=== PATIENT | female | born 1940 | race Caucasian/White ===

== ENCOUNTER 2025-04-26 03:12 | Inpatient (IN) | payer MEDICARE, SELFPAY ==
[2025-04-25 20:24] VITALS: BP 126/70
--- NOTE | 2025-04-25 22:46 | ED.GENMED ---
History of Present Illness
General
Chief Complaint: Abdominal Symptoms
Source: patient, spouse and previous radiology exam (Patient brings with her CT abdomen and pelvis on disc performed earlier today)
Exam Limitations: none
Time Seen by Provider: 04/25/25 22:05
Nursing documentation reviewed up to this point in time: agreed with
History of Present Illness
History of Present Illness:
This is an 84-year-old woman who resides at home with her . She has somewhat extensive past medical history including hypertension, hyperlipidemia, rheumatoid arthritis/Sjogren's syndrome, CHF, left breast cancer status postlumpectomy,
pacemaker, history of mitral as well as tricuspid valve replacements and history of TAVR. She also notes history of somewhat chronic, intermittent lower abdominal discomfort and follows with a asphalt screed operator, Dr. Leahy with previous
colonoscopy 2020. Lower abdominal pain has been attributed to constipation. More recently however she has had more persistent, severe lower abdominal pain, primarily right lower quadrant and evaluated by her asphalt screed operator and underwent CT
abdomen and pelvis February 27 which reportedly showed diverticulosis but no evidence of diverticulitis. Since then she has continued with this lower abdominal pain which is primarily right lower quadrant, much worse when passing a bowel movement. And
notices a fullness, bulge in her right lower quadrant when passing a bowel movement. Due to persistent, worsening lower abdominal pain she sought a second opinion early March with colorectal surgeon, Dr. Brian Velarde. Recommended initiation
of fiber supplement and although the fiber supplement has increased number of bowel movements she passes she has continued with significant right lower quadrant abdominal pain without any other associated symptoms. She has not had a fever nor
chills, no nausea or vomiting. She does note some vaginal pressure, discomfort as well as lower abdominal pain with urinating but denies dysuria nor frequency nor hematuria. Denies back or flank pain. At 1 point she was treated for UTI with a
10-day course of antibiotic which finished 1-1/2 weeks ago.
Lower abdominal pain has persisted thus follow-up call with Dr. Velarde she underwent CT abdomen pelvis today at [facility] and received a call that the CAT scan shows diverticulitis with abscess formation. She spoke with
Syd and as he is semiretired, no longer performing surgeries he recommended several colorectal surgeons including Dr. Olivo.
Patient arrives to the ED tonight for further evaluation.
She has history of rheumatoid arthritis, maintained on Plaquenil, prednisone 7 mg daily. Had been maintained on Actemra injections every 2 weeks with temporary hold on Actemra while she underwent pacemaker revision March 21. Resumed Actemra 2 weeks
ago but then due to persistent abdominal pain was recommended by embroidery finisher to continue to hold Actemra.
She takes no anticoagulants save for low-dose aspirin.
Past History
Past History
ED Past Medical History: Cancer (Left breast cancer), CHF, HTN, Hypercholesterolemia, Valvular disease and Other (Rheumatoid arthritis/Sjogren's syndrome)
ED Past Surgical History: Cardiac (Pacemaker, pacemaker revision February 2025; TAVR August 2024, mitral valve replacement August 2019, tricuspid valve May 2021), Gynecological (Left breast lumpectomy March 2006, left breast lumpectomy November
2021) and Orthopedic (Left knee)
Social History
Tobacco: Non-smoker
Alcohol: None
Personal:
Living: with family
Family History
Family History: Other (Noncontributory)
Phy Exam
Physical Exam
Physical Exam:
GENERAL: 84-year-old woman appears somewhat younger than stated age. Bright and alert, easily communicative and in no acute distress. is accompanying.
EYE: anicteric
NECK: Supple, nontender, no meningismus, no significant adenopathy.
ENT: oral mucosa is moist. No rhinorrhea.
CARDIAC: Regular rate and rhythm. no murmur.
LUNGS: Clear breath sounds bilaterally, no acute respiratory distress, no wheezes/rales/rhonchi
ABDOMEN: Soft, nondistended, moderate tenderness right lower quadrant and suprapubic region, mild tenderness left lower quadrant, no palpable masses, no r/g, no cvat. Minimally hyperactive bowel sounds.
NEUROLOGICAL: Alert and oriented x3, no focal neuro deficits. Gait is steady.
SKIN: Warm and dry, normal color, skin intact. No rash.
MUSCULOSKELETAL: No C/C/E. peripheral pulses are full and equal b/l. No palpable tenderness.
PSYCH: Normal and appropriate interaction.
Course
Orders/Labs/Results
Orders:
Orders
04/25/25 22:46
Electrocardiogram (*1) Urgent
Reason for Study: Abdominal Pain
EKG- Treatment ONCE
Urinalysis Reflex To Culture Urgent
04/25/25 23:35
CRP [C-Reactive Protein] Urgent
Complete Blood Count/With Diff Urgent
Comprehensive Metabolic Panel Urgent
Lactic Acid Urgent
Sed Rate [Erythrocyte Sed Rate] Urgent
Blood Culture Q30M
GURINDER Source: Blood/Venous
Specimen Description:
Blood Culture Q30M
GURINDER Source: Blood/Venous
Specimen Description:
04/26/25 00:05
0.9% Sodium Chloride 1000 ml [Nss] 1,000 ml IV 100 mls/hr
Piperacillin/Tazo 3.375 Gram [Zosyn] 3.375 gram in 50 ml IV NOW
Abnormal Lab Results
04/25/25
23:35
WBC 14.1 H 10^3/uL
(4.8-10.8)
RBC 3.94 L 10^6/uL
(4.20-5.40)
MCH 31.7 H pg
(27.0-31.0)
MCHC 32.6 L g/dL
(33.0-37.0)
Abs Immat Gran (auto) 0.1 H 10^3/uL
(0-0.05)
Absolute Neuts (auto) 10.7 H 10^3/uL
(1.4-6.5)
Absolute Monos (auto) 1.5 H 10^3/uL
(0.1-0.6)
Immature Gran % 1.0 H %
(0-0.5)
Neutrophils % 75.7 H %
(42.2-75.2)
Lymphocytes % 11.4 L %
(20.5-51.1)
Monocytes % 10.9 H %
(1.7-9.3)
BUN 25 H mg/dl
(7-17)
Alkaline Phosphatase 134 H U/L
(38-126)
C-Reactive Protein 39.40 H mg/L
(0.0-10.00)
04/25/25 23:35
04/25/25 23:35
Vital Signs
Initial and Last Documented VS:
Initial Vital Signs
Temp Pulse Resp BP Pulse Ox
97.7 F 86 16 126/70 97
04/25/25 20:24 04/25/25 20:24 04/25/25 20:24 04/25/25 20:24 04/25/25 20:24
Last Documented Vital Signs
Temp Pulse Resp BP Pulse Ox
97.7 F 75 18 149/74 95
04/25/25 23:49 04/25/25 23:49 04/26/25 00:04 04/25/25 23:34 04/26/25 00:09
MDM/Problems Addressed
Differential Diagnosis Includes:
Patient presents with ongoing lower abdominal pain for 2 months, progressively worsening at least over the past month.
Reported unremarkable CT abdomen pelvis February [address] abdomen pelvis today showing sigmoid diverticulitis with focal abscess measuring 5.4 x 3 x 3.2 cm. No oral contrast within the abscess cavity and no free air is visualized. Appendix is
not visualized however no inflammatory changes to suggest appendicitis.
She has not had a fever, overall well in appearance.
Reports no prior history of diverticulitis.
Of note, she had been treated for potential UTI beginning April 10 with a 10-day course of antibiotics which I suspect was Bactrim. She may have partially treated diverticulitis with that course of antibiotic.
Will check labs, initiate IV fluids and plan for IV antibiotics.
Will discuss case with colorectal surgery.
Patient has complex past medical history including rheumatoid arthritis/Sjogren's syndrome, chronic immunocompromise, chronically maintained on prednisone, immunologic's. History of hypertensive heart disease/CHF, valvular disease.
Will check EKG. Lungs are clear to auscultation, she has had no shortness of breath nor chest pain. No indication for chest x-ray.
Will plan to admit to hospitalist service.
Chronic conditions affecting care: HTN, Cardiomyopathy, Immunosuppressed and Cancer
*Radiology
Radiology exam reviewed: other (Outpatient CT abdomen pelvis: Wall thickening of the sigmoid colon with mild surrounding inflammation compatible with acute diverticulitis. Just superior to the sigmoid colon there is a 5.4 x 3 x 3.2 cm fluid
collection consistent with an abscess. There is no oral contrast within the abscess cavit)
*Pulse Oximetry
SaO2: 97
Oxygen Mode of Delivery: Room air
Patient hypoxic: no
*Critical Care Note
Total Time (30-74mins, 75-104mins- exclusive of procedures): Not Applicable
ED Attending Note
-
Portions of this chart may have been created with voice recognition software.� Occasional wrong word or��sound alike� substitutions may have occurred due to the inherent limitations of voice recognition software.
Discharge Plan
Departure
Patient Disposition: Admit
Date of Disposition: 04/26/25
Time of Disposition: 00:48
Admit to: Med/Surg
Admit to doctor: Jon
Presentation/result/management discussed w/ accepting MD/DO: Hospitalist
Condition: Fair
Discharge Problem:
Abscess of sigmoid colon due to diverticulitis
Referrals:
UNKNOWN - PT DOES,NOT KNOW [Family Provider]
Interventions
Interventions:
*Risk Screen - Suicide Last Done: 04/25/25 23:23
*General Assessment Last Done: 04/25/25 23:23
*Neglect/Abuse Screening Last Done: 04/25/25 23:23
*ED- Fall Risk Assessment Last Done: 04/25/25 23:23
*ED COVID-19 Vaccine History Last Done: 04/25/25 23:23
OS-Akahsg-Ixnlgruagn Assessment Last Done: 04/25/25 23:49
Discharge Date and Time
Print Language: SWAZI
[2025-04-25 23:23] VITALS: BMI 21.0
[2025-04-25 23:34] VITALS: BP 149/74
[2025-04-25 23:51] LABS: Hematocrit 38.3 % (37.0-47.0); Hemoglobin 12.5 g/dL (12.0-16.0); Mean Corp Hgb Conc. 32.6 g/dL (33.0-37.0); Mean Corpuscular Volume 97.2 fL (81.0-99.0); Nucleated Red Blood Cells % 0 %; Platelet Count 243 10^3/uL (130-400); Red Cell Dist. Width 12.4 % (11.5-14.5)
[2025-04-26 00:03] LABS: ALT (SGPT) 29 U/L (0-35); AST (SGOT) 36 U/L (14-36); Albumin 4.1 g/dl (3.5-5.0); Alkaline Phosphatase 134 U/L (38-126); Blood Urea Nitrogen 25 mg/dl (7-17); Calcium 9.3 mg/dl (8.4-10.2); Carbon Dioxide 30 mmol/L (22-30); Chloride 104 mmol/L (98-107); Estimated Creatinine Clearance 48 ml/min; Glucose 94 mg/dl (70-99); Potassium 4.6 mmol/L (3.5-5.1); Sodium 139 mmol/L (135-145); Total Protein 6.9 g/dl (6.3-8.2); eGFR > 60.00
[2025-04-26 00:12] LABS: C-Reactive Protein 39.40 mg/L (0.0-10.00)
[2025-04-26] MEDS: NSS 1000 IV (00:19)
[2025-04-26] MEDS: ZOSYN 50 IV ×4 (00:20→21:20)
--- NOTE | 2025-04-26 02:47 | HPS.HSE ---
Family Physician
-
Family Physician: NOT KNOW UNKNOWN - PT DOES
Chief Complaint
-
Abd pain
History of Present Illness
Patient is an 84y F with PMH significant for rheumatoid arthritis, hypertension and prior breast cancer who presents to ED complaining of abdominal pain and abnormal CT scan. Patient states that she has had intermittent lower abdominal / pelvic
pain off-and-on for several years. Symptoms were typically brief / self-limited. Since January of this year she has had more frequent and more severe symptoms. She underwent initial CT A/P with her PCP on 02/27 which showed diverticulosis. She was
referred to Dr. Velarde for painful diverticulosis and started on regimen of Konsul with some improvement in her symptoms. Over the past week or two, she has again had an increase in frequency and severity of pain. She reports pain in the LLQ
and radiating into the genital area. She denies any fevers / chills. but complains of general fatigue and malaise.
No constipation or diarrhea. No bloody stools. No N/V.
Patient was sent for a repeat CT today (done at [facility]) and was called this evening with results.
That CT showed acute diverticulitis with abscess. Patient was advised to present to a facility with colorectal surgery providers and presented to the ED here for evaluation.
At the time of my examination she is resting comfortably and has no current pain.
Medical History
Past Medical History
Past Medical History: Reports Other
Additional Past Medical History:
Rheumatoid Arthritis
Valvular Heart Disease
HFpEF
Hypertension
Sick Sinus Syndrome
Breast Cancer
Paget's Disease of Breast
Diverticular disease
Past Surgical History: Reports Other
Additional Past Surgical History:
MV / TV Replacements
TAVR
PPM Placement
PPM Revision (retained leads)
Bilateral Lumpectomies
Hysterectomy
Right TKA
Social History
Tobacco: Former Smoker (Quit smoking at age 29.)
Alcohol: None
Drug: None
Family History
Family History: Not pertinent
Allergies / Home Medications
Allergies reflects when Allergies were last updated in [facility].
Home Medications with original date entered in [facility]
Allergy/Medication List:
Allergies
Allergy/AdvReac Type Severity Reaction Status Date / Time
lactose Allergy Intolerant Verified 04/25/25 20:32
Home Medications
Acromasin Exemestane 25 mg PO DAILY 04/26/25
Actemra Injection 152 mg SC Q2W 04/26/25
Klorcon Potassium 2 tab PO DAILY 04/26/25
Oxymetazoline Cinamide 04/26/25
PreserVision AREDS 3 tab PO DAILY PRN eyes 04/26/25
acetaminophen 325 mg tablet (Tylenol) 650 mg PO Q6H PRN mild pain 04/26/25
aspirin 81 mg tablet 81 mg PO DAILY 04/26/25
biotin 5,000 mg PO DAILY 04/26/25
calcium citrate 600 mg PO DAILY 04/26/25
cholecalciferol (vitamin D3) 25 mcg (1,000 unit) tablet 25 mcg PO DAILY 04/26/25
dapagliflozin propanediol 5 mg tablet (Farxiga) 5 mg PO 04/26/25
diclofenac sodium 1 % topical gel 1 topical PRN pain 04/26/25
famotidine 40 mg tablet (Pepcid) 40 mg PO DAILY 04/26/25
folic acid 1 mg tablet 1 mg PO DAILY 04/26/25
hydroxychloroquine 200 mg tablet (Plaquenil) 200 mg PO MOWEFR 04/26/25
nadolol 20 mg tablet 20 mg PO DAILY 04/26/25
peg 400-propylene glycol (PF) 0.4 %-0.3 % eye drops in a dropperette (Systane (PF)) 1 drp ophthalmic (eye) BID 04/26/25
prednisone 7 mg PO DAILY 04/26/25
rosuvastatin 10 mg tablet 10 mg PO DAILY 04/26/25
sulfasalazine 500 mg tablet 500 mg PO DAILY 04/26/25
tramadol 50 mg tablet 50 mg PO PRN pain 04/26/25
Review of Systems
-
History Source: Patient
A 12 point ROS was completed and negative except as noted: Yes
Constitutional: Reports Fatigue; Denies Fever or Chills
Respiratory: Denies Cough or Trouble Breathing
Cardiac: Denies Chest Pain or Palpitations
Abdomen/GI: Reports Abdominal Pain; Denies Nausea, Vomiting, Diarrhea, Bloody Stools or Black Stools
: Denies Dysuria or Flank Pain
Musculoskeletal: Denies Joint Pain or Edema
Neurological: Denies Dizzy or Headache
Psych: Denies Depression or Anxiety
Physical Exam
Vital Signs
Vital Signs
Temp Pulse Resp BP Pulse Ox
97.7 F 75 17 149/74 95
04/25/25 23:49 04/25/25 23:49 04/26/25 02:00 04/25/25 23:34 04/26/25 00:09
Physical Exam
General: Other (84y F in no acute distress.)
HEENT: Moist mucous membranes and PERRLA
Respiratory: Clear; No Wheezes, Rales or Rhonchi
Cardiac: S1/S2, Regular Rhythm and Murmur (III/ AMAURY. Barber valve sounds.)
GI: Soft, Non Distended, Normal Bowel Sounds and Other (Mild suprapubic tenderness without rebound / guarding.)
Musculoskeletal: No Clubbing, No Cyanosis and No Edema
Neuro: AO x 3
Laboratory Results
-
04/25/25 23:35
04/25/25 23:35
Laboratory Results
Lactic Acid 0.7 mmol/L (0.7-2.0) 04/25/25 23:35
Total Bilirubin 0.7 mg/dl (0.2-1.3) 04/25/25 23:35
AST 36 U/L (14-36) 04/25/25 23:35
ALT 29 U/L (0-35) 04/25/25 23:35
Alkaline Phosphatase 134 U/L (38-126) H 04/25/25 23:35
Impression/Plan
-
A/P: Patient is an 84y F with PMH significant for valvular heart disease, RA and hypertension who presents to ED for evaluation of diverticulitis / abscess diagnosed on outside CT scan.
Acute Sigmoid Diverticulitis with Abscess
Left Hydronephrosis secondary to the above
- Admit for further evaluation and treatment.
- NPO, IV abx, pain control, etc.
- IR consulted for abscess aspiration / drain placement in AM.
- Colorectal Surgery consulted for additional recommendations.
- Follow temperature curve.
- Monitor for any new / worsening symptoms.
Rheumatoid Arthritis
- Patient reports recent increase in joint pain symptoms.
- Has mostly been off of Actemra (held for PPM replacement in February - took one dose since and then stopped again due to diverticular issues).
- Continue to hold this.
- Continue other current meds including prednisone, Plaquenil, etc.
Valvular Heart Disease
SSS
- s/p mitral, tricuspid and aortic valve replacements in the past.
- Not maintained on chronic diuretic therapy, etc.
- Follow I/Os, daily weights, etc.
- s/p PPM placement and revision. Multiple leads in place.
DVT Prophylaxis: SCDs
Code Status: Full
[2025-04-26] MEDS: TYLENOL 650 MG PO ×2 (04:30→21:19)
[2025-04-26 04:45] VITALS: BP 155/72
[2025-04-26 04:46] VITALS: BMI 20.4
[2025-04-26 05:06] VITALS: BMI 20.4
[2025-04-26] MEDS: ZOSYN IV (05:26)
--- NOTE | 2025-04-26 05:58 | TRANSFER ---
Pt arrived from ED @0445 dx diverticulitis with abscess. ABX Zosyn was infusing on arrival. Pt AAOx4 able to make all needs known. Denied pain to RLQ. VS WNL. Plan of care discussed with pt. Call lindquist within reach. Bed in lowest position.
[2025-04-26 06:00] VITALS: BMI 20.2
[2025-04-26 06:42] LABS: Urine Character Clear (Clear)
[2025-04-26 07:00] VITALS: BP 143/63
[2025-04-26 07:04] LABS: Urine Red Blood Cell None Seen /HPF (0-2)
--- NOTE | 2025-04-26 07:31 | W.PN.UPDATE ---
Update Note
Progress Note Update
Diverticular abscess on yesterday's CT. Unfortunately there is not a safe window for percutaneous drainage of the abscess - bones of pelvis block posterior access, and bowel and iliac vessels block anterior and anterolateral access.
[2025-04-26] MEDS: LOW STRENGTH ASPIRIN 81 MG PO (08:37)
[2025-04-26] MEDS: CORGARD 20 MG PO (08:38)
[2025-04-26] MEDS: FOLVITE 1 MG PO (08:38)
[2025-04-26] MEDS: DELTASONE 7 MG PO (08:39)
--- NOTE | 2025-04-26 10:04 | CON.CRS ---
Consultation
-
Date/Time Consultation Requested: 04/26/2025, 4:37 AM
Date/Time Consultation Performed: 04/26/2025, 9 AM
Requesting Provider: Willy Webb DO
Performing Provider: Korey Olivo MD
Reason for Consultation: diverticulitis
Medical History
-
Chief Complaint: Abdominal pain
History of Present Illness:
84-year-old female with a history of rheumatoid arthritis on hydrochloric when and prednisone, hypertension, and history of breast cancer, complaints to [facility] due to an abnormal CT scan. She had abdominal pain since 02 April and saw the
colorectal office at [facility]. She had an outpatient CT scan that showed acute sigmoid diverticulitis with an associated abscess. She then came to [facility]. She states this is her first attack of diverticulitis. The pain
was worse but it is now improving. She states it was hard to urinate due to lower cramping pain when this first started. She denies any air in her urine. Her bowels are typically regular but they are now loose. She has had a prior hysterectomy
and no other abdominal surgeries. She recently had a TAVR in August 2024 followed by a replacement of a permanent pacemaker on March 21, 2025. On admission her WBC was 14.1. Her vitals have remained normal. IR did take a look at the CT from
[facility] and it was determined there was not a safe window for drainage of the abscess. This was due to bones of the pelvis blocking posterior abscess and bowel and iliac vessels blocking anterior and anterior lateral access.
Given these findings, we have been consulted for surgery evaluation.
Past Medical History
Past Medical History: Other (Rheumatoid arthritis, valvular heart disease, hypertension, sick sinus syndrome, history of breast cancer. Paget's disease of breast)
Past Surgical History: Other (MR/TV replacement, permanent pacemaker placement and revision, bilateral lumpectomies, hysterectomy, right TKA)
Social History
Tobacco: Former Smoker (Quit smoking at age 29)
Alcohol: None
Drug: None
Family History
Family History: Reviewed & Not Pertinent
Allergies / Home Medications
Allergy/AdvReac Type Severity Reaction Status Date / Time
lactose Allergy Intolerant Verified 04/25/25 20:32
�Medication �Instructions �Recorded �Confirmed �Type
Acromasin Exemestane 25 mg PO DAILY 04/26/25 History
Actemra Injection 152 mg SC Q2W 04/26/25 04/26/25 History
Klorcon Potassium 2 tab PO DAILY 04/26/25 History
Oxymetazoline Cinamide 04/26/25 History
PreserVision AREDS 3 tab PO DAILY PRN eyes 04/26/25 04/26/25 History
acetaminophen 325 mg tablet 650 mg PO Q6H PRN mild pain 04/26/25 04/26/25 History
(Tylenol)
aspirin 81 mg tablet 81 mg PO DAILY 04/26/25 04/26/25 History
biotin 5,000 mg PO DAILY 04/26/25 04/26/25 History
calcium citrate 600 mg PO DAILY 04/26/25 04/26/25 History
cholecalciferol (vitamin D3) 25 25 mcg PO DAILY 04/26/25 04/26/25 History
mcg (1,000 unit) tablet
dapagliflozin propanediol 5 mg 5 mg PO 04/26/25 History
tablet (Farxiga)
diclofenac sodium 1 % topical gel 1 topical PRN pain 04/26/25 History
famotidine 40 mg tablet (Pepcid) 40 mg PO DAILY 04/26/25 04/26/25 History
folic acid 1 mg tablet 1 mg PO DAILY 04/26/25 04/26/25 History
furosemide 40 mg tablet (Lasix) 60 mg PO DAILY 04/26/25 04/26/25 History
hydroxychloroquine 200 mg tablet 200 mg PO MOWEFR 04/26/25 04/26/25 History
(Plaquenil)
nadolol 20 mg tablet 20 mg PO DAILY 04/26/25 04/26/25 History
peg 400-propylene glycol (PF) 0.4 1 drp ophthalmic (eye) BID 04/26/25 04/26/25 History
%-0.3 % eye drops in a dropperette
(Systane (PF))
prednisone 7 mg PO DAILY 04/26/25 04/26/25 History
rosuvastatin 10 mg tablet 10 mg PO DAILY 04/26/25 04/26/25 History
sulfasalazine 500 mg tablet 500 mg PO DAILY 04/26/25 04/26/25 History
tramadol 50 mg tablet 50 mg PO PRN pain 04/26/25 History
Review of Systems
-
History Source: Patient
Abdomen/GI: Abdominal Pain
A 10 point review of systems was completed, and was negative except as per HPI.
Physical Exam
Vital Signs
Temp 98.4 F 04/26/25 07:00
Pulse 76 04/26/25 07:00
Resp Rate 16 04/26/25 07:00
Blood pressure 143/63 04/26/25 07:00
SaO2 97 04/26/25 07:00
04/25/25 04/26/25 04/27/25
06:59 06:59 06:59
Actual Weight 57.351 kg
Body Mass Index (BMI) 20.4
Lab Results / Allergies
WBC 14.1 10^3/uL (4.8-10.8) H 04/25/25 23:35
Hgb 12.5 g/dL (12.0-16.0) 04/25/25 23:35
Hct 38.3 % (37.0-47.0) 04/25/25 23:35
Plt Count 243 10^3/uL (130-400) 04/25/25 23:35
Abs Immat Gran (auto) 0.1 10^3/uL (0-0.05) H 04/25/25 23:35
Neutrophils % 75.7 % (42.2-75.2) H 04/25/25 23:35
Allergy/AdvReac Type Severity Reaction Status Date / Time
lactose Allergy Intolerant Verified 04/25/25 20:32
Physical Exam
General: Well Developed, Well Nourished and No Apparent Distress
GI: Soft and Tender (Mild left lower quadrant pain)
Data Reviewed
-
CT Scan: Image Personally Visualized and interpreted, Discussed with Physician and Discussed with Patient
Labs: Labs Reviewed by me, Discussed with Physician and Discussed with Patient
Old Records: Reviewed
Assessment / Plan
-
Assessment: 84-year-old female with first attack of sigmoid diverticulitis with associated abscess unable to be drained by interventional radiology
Plan:
- Up-to-date on colonoscopy, last one was [address] Leahy. Will likely need another as an outpatient once this episode resolves.
- Continue IV fluids. Okay for clears.
- Continue IV antibiotics
- Trend labs and exams. If she worsens she will require colectomy with drainage of the abscess.
- Eventual reimaging at some point inpatient versus outpatient
--- NOTE | 2025-04-26 11:12 | CM ---
CM following re: discharge planning.
Reviewed pt's chart, met with pt.
Pt is an 84 year old female, admitted with primary dx of Acute Sigmoid Diverticulitis with Abscess.
Pt reports she lives with 2SH, 3 steps to enter, has 3 supportive children. Pt described herself as independent in all areas [employer], known to Ellyn LEGER. No DME, no SNF history. Pt expressed her desire to return back home with family support.
PCP: Adriana Bernabe
Pharmacy: [facility]
D/C plan: home with anticipated no needs. to transport at discharge.
CM will follow with discharge plan updates as hospitalization progresses
--- NOTE | 2025-04-26 13:19 | W.PN.HOSP.TC ---
Today's Communication/Plan
-
Zosyn
Clear liquid diet
Assessment / Plan
Assessment / Plan
A/P: Patient is an 84y F with PMH significant for valvular heart disease, RA and hypertension who presents to ED for evaluation of diverticulitis / abscess diagnosed on outside CT scan.
Acute Sigmoid Diverticulitis with Abscess
Left Hydronephrosis secondary to the above
- Admit for further evaluation and treatment.
- Given anatomy and abscess location, [facility] was not able to perform percutaneous drain
- Colorectal Surgery consulted for additional recommendations.
- Plan is to attempt conservative management with IV antibiotics and follow-up imaging depending on clinical development
-Advance to clear liquid diet
- Follow temperature curve.
- Monitor for any new / worsening symptoms.
Rheumatoid Arthritis
Immunosuppressed state on Biologics, hydroxychloroquine, and chronic steroids
- Patient reports recent increase in joint pain symptoms.
- Has mostly been off of Actemra (held for PPM replacement in February - took one dose since and then stopped again due to diverticular issues).
- Continue to hold this.
- Continue other current meds including prednisone, Plaquenil, etc.
Valvular Heart Disease
SSS
- s/p mitral, tricuspid and aortic valve replacements in the past.
- Not maintained on chronic diuretic therapy, etc.
- Follow I/Os, daily weights, etc.
- s/p PPM placement and revision. Multiple leads in place.
DVT Prophylaxis: SCDs
Code Status: Full
Anticipated Discharge: > 48 hours
Subjective/Interval History
-
Date of Service: April 26, 2025
Objective Data
-
Labs:
Laboratory Results
04/26/25
06:00
WBC Pending
Hgb Pending
Hct Pending
Plt Count Pending
Sodium Pending
Potassium Pending
Chloride Pending
Carbon Dioxide Pending
BUN Pending
Creatinine Pending
Glucose Pending
Calcium Pending
Vital Signs:
Vital Signs
Temp Pulse Resp BP Pulse Ox
98.4 F 76 16 143/63 96
04/26/25 07:00 04/26/25 07:00 04/26/25 07:00 04/26/25 07:00 04/26/25 11:01
I&O
04/25/25 04/26/25 04/27/25
06:59 06:59 06:59
Intake Total 480 / 480
Balance 480 / 480
Physical Exam
-
General: Well Developed and No Apparent Distress
HEENT: Normocephalic, Atraumatic and Moist Mucous Membranes
Respiratory: Clear to Auscultation
Cardiac: Regular Rhythm and S1/S2; Negative Murmur, Rub or Gallop
GI: Soft, Nondistended, Normal Bowel Sounds and Other (Mild bilateral lower quadrant tenderness without rebound); Negative Organomegaly
Rectal: Deferred by Provider
Musculoskeletal: No Clubbing, No Cyanosis and No Edema
Skin: Negative Rash
Neuro: Nonfocal/Grossly Intact
[2025-04-26 15:00] VITALS: BP 122/66
[2025-04-26 23:00] VITALS: BP 133/76
[2025-04-27] MEDS: ZOSYN 50 IV ×3 (04:08→16:21)
[2025-04-27 06:00] VITALS: BMI 20.2
[2025-04-27 07:05] VITALS: BP 130/59
[2025-04-27 08:22] LABS: Hematocrit 35.9 % (37.0-47.0); Hemoglobin 12.2 g/dL (12.0-16.0); Mean Corp Hgb Conc. 34.0 g/dL (33.0-37.0); Mean Corpuscular Volume 97.3 fL (81.0-99.0); Platelet Count 217 10^3/uL (130-400); Red Cell Dist. Width 12.6 % (11.5-14.5)
[2025-04-27] MEDS: DELTASONE 7 MG PO (08:46)
[2025-04-27] MEDS: CORGARD 20 MG PO (08:46)
[2025-04-27] MEDS: PLAQUENIL 200 MG PO (08:47)
[2025-04-27] MEDS: FOLVITE 1 MG PO (08:47)
[2025-04-27] MEDS: LOW STRENGTH ASPIRIN 81 MG PO (08:47)
[2025-04-27 08:51] LABS: Blood Urea Nitrogen 13 mg/dl (7-17); Calcium 9.1 mg/dl (8.4-10.2); Carbon Dioxide 28 mmol/L (22-30); Chloride 106 mmol/L (98-107); Estimated Creatinine Clearance 53 ml/min; Glucose 82 mg/dl (70-99); Potassium 3.9 mmol/L (3.5-5.1); Sodium 138 mmol/L (135-145); eGFR > 60.00
[2025-04-27] MEDS: VITAMIN D3 (cholecalciferol) 25 MCG PO (09:00)
[2025-04-27] MEDS: LASIX 60 MG PO (09:00)
--- NOTE | 2025-04-27 09:48 | CON.ID ---
Addendum entered and electronically signed by Maida Encinas MD 04/27/25 15:54:
I personally performed a history and physical exam of the patient and discussed management with the resident. I reviewed the resident's note and agree with the documented findings and plan of care HPI/CC.
# Diverticulitis with 4.5cm abscess
# Leukocytosis, on low dose prednisone
# hx PPM, TAVR, MVR, TVR
# RA on chronic prednisone, Actemra currently on hold
- Recent outpt course of Augmentin x 10d without improvement
- Per IR, no safe window for perc drain.
- No surgical intervention per Colorectal.
- Currently improving on Zosyn (d3)
- Avoiding FQ due to QTc 537
- At time of discharge, recommend trial of Bactrim DS 1 tab po bid and Augmentin 875mg po bid x 3 weeks.
Hold K+, avoid potassium-rich food products while on Bactrim.
Needs once or twice a week BMP to monitor renal function and K while on Bactrim.
Original Note:
Consultation
-
Date/Time Consultation Requested: 04/27/2025 09:34
Date/Time Consultation Performed: 04/27/2025 09:45
Requesting Provider: mariana Churchill MD
Performing Provider: Sha Ryder MD ; Maida Encinas MD
Reason for Consultation: Diverticulitis with Abscess
Chief Complaint / Past History
Chief Complaint
Lower abdominal pain
History of Present Illness
This is a 84-year-old woman with extensive past medical history including hypertension, hyperlipidemia, RA/sjorgen's syndrome, CHF, left breast cancer s/p lumpectomy, pacemaker, history of mitral as well as tricuspid valve replacement, history of
TAVR, with history of chronic lower abdominal discomfort presented with lower abdominal pain and per the recommendations from the PCP and GI he has a recent CT showed diverticulitis with abscess formation.
For her chronic lower abdominal pain she follows with the GI, Dr. Leahy and had a last colonoscopy in 2020. She had a CT abdomen and pelvis on 02/27/2025 which showed diverticulosis but there was no evidence of diverticulitis. She noticed that in
addition to her lower abdominal pain she also had some right lower quadrant swelling and he seek another opinion from colorectal surgeon, Dr. Brian Velarde. Who recommended fiber supplementation and she was also on Augmentin from 04/05/2025 for
10-day course. Given that her abdominal pain continued to worsen she underwent another CT on 04/26/2025 at [facility] and received a call that showed diverticulitis with abscess and PCP recommended her to visit the emergency
department.
She does note some vaginal pressure, discomfort as well as lower abdominal pain with urinating but denies dysuria nor frequency nor hematuria.
Past History
Past Medical History: CAD, CHF, HTN, Hypercholesterolemia, Valvular Disease and Other (Rheumatoid arthritis/Sjogren's syndrome)
Past Surgical History: Cardiac (Pacemaker with revision in February 2025; TAVR August 2024: Mitral valve replacement August 2019, tricuspid valve May 2021), Gynecological (Left breast lumpectomy March 31 2006, left breast lumpectomy November 29, 2001
2) and Orthopedic (Left knee)
Allergy History:
lactose Allergy (Verified 04/25/25 20:32)
Intolerant
Medications Reviewed: Yes
Current Antibiotics:
IV Zosyn
Social History
Tobacco: Former Smoker
Alcohol: None
Drug: None
Family History
Family History: Not Pertinent
Review of Systems
Review of Systems
General: Negative Fever or Chills
Cardiovascular: Negative Chest Pain
Respiratory: Negative Dyspnea or Cough
Gasteroenterology: Other (Right lower quadrant abdominal pain); Negative Nausea, Vomiting or Diarrhea
Genital / Urological: Negative Dysuria or Hematuria
Endocrine: Negative Weight Change
Musculoskeletal: Negative Joint Pain
Vital Signs
Temp Pulse Resp BP Pulse Ox
98.7 F 74 16 130/59 97
04/27/25 07:05 04/27/25 09:00 04/27/25 07:05 04/27/25 09:00 04/27/25 07:05
Physical Exam
Physical Exam
Constitutional: No Acute Distress and Comfortable
Cardiovascular: Regular Rate and S1/S2
Pulmonary: Clear and Non Labored
Gastrointestinal: Soft, Tender (Mildly tender in the lower right quadrant and hypogastric area) and Non Distended
Neurological: Awake, Alert and Oriented
Psychological: Calm
Lab / Diagnostic Study Results
04/27/25 08:15
04/27/25 08:15
Abs Immat Gran (auto) 0.1 10^3/uL (0-0.05) H 04/25/25 23:35
Absolute Neuts (auto) 10.7 10^3/uL (1.4-6.5) H 04/25/25 23:35
Absolute Lymphs (auto) 1.6 10^3/uL (1.2-3.4) 04/25/25 23:35
Absolute Monos (auto) 1.5 10^3/uL (0.1-0.6) H 04/25/25 23:35
Absolute Basos (auto) 0.0 10^3/uL (0-0.2) 04/25/25 23:35
Immature Gran % 1.0 % (0-0.5) H 04/25/25 23:35
Neutrophils % 75.7 % (42.2-75.2) H 04/25/25 23:35
Lymphocytes % 11.4 % (20.5-51.1) L 04/25/25 23:35
Monocytes % 10.9 % (1.7-9.3) H 04/25/25 23:35
Eosinophils % 0.7 % (0-6) 04/25/25 23:35
Basophils % 0.3 % (0-2) 04/25/25 23:35
ESR 20 mm/hour (0-20) 04/25/25 23:35
Lactic Acid 0.7 mmol/L (0.7-2.0) 04/25/25 23:35
C-Reactive Protein 39.40 mg/L (0.0-10.00) H 04/25/25 23:35
Ur Squamous Epith Cells 6-10 /LPF (Few) 04/26/25 06:09
Microbiology Results
Micro:
04/25/25 23:35 Blood Culture - Preliminary
Blood/Venous No Growth in 24 hours- Final report to follow
04/25/25 23:35 Blood Culture - Preliminary
Blood/Venous No Growth in 24 hours- Final report to follow
04/26/25 06:09 Urine Culture - Pending
Urine
Assessment / Plan
#Acute Sigmoid Diverticulitis with Abscess
#Rheumatoid Arthritis: Immunosuppressed; on Biologics, hydroxychloroquine, and chronic steroids; Actemra on hold due to diverticular issues
#Valvular Heart Disease
#CHF
#Leukocytosis
-Follow temperature curve; leukocytosis improving
-Follow-up imaging depending on clinical course
-Given anatomy and abscess location, IRad recommended no safe window for draining
-After discussion with the colorectal surgery patient is hopeful to avoid any surgical procedures and would prefer conservative management.
-Currently on IV Zosyn; can switch to bactrim+ augmentin upon dc; if she does not respond to this will need IV abx. Do not recommend fluoroquinolones given her high QTc; will need 3-4 weeks of abx
- will need weekly BMP.
- will hold supplemental k while on bactrim
- Blood culture NGTD and urine culture neg
--- NOTE | 2025-04-27 10:04 | W.PN.CRS1 ---
Today's Communication / Plan
-
Full liquids
ID consult
Assessment/Plan
-
84-year-old female on chronic steroids for RA admitted. Sigmoid diverticulitis and associated abscess not amenable to percutaneous drainage. There appears to be associated left hydronephrosis.
She remains afebrile with normal vital signs.
- Advance to full liquids.
- ID consult (might need IV abx at home as she failed oral therapy)
- No plans for surgery at this time. Will re-CT (inpatient vs outpatient based on her clinical course)-
Subjective Data
Subjective Data
Date of Service: April 27, 2025
She feels better but still has some lower abdominal/pelvic discomfort. She hasn't moved her bowels in a few days and she has not taken any narcotics. She is hungry and tolerating clear liquids.
Objective Data
-
Vital Signs
Temp Pulse Resp BP Pulse Ox
98.7 F 74 16 130/59 97
04/27/25 07:05 04/27/25 09:00 04/27/25 07:05 04/27/25 09:00 04/27/25 07:05
Intake & Output
04/26/25 04/27/25 04/28/25
06:59 06:59 06:59
Intake Total 480 / 480 1760 / 1760
Balance 480 / 480 1760 / 1760
Intake:
Oral fluids 480 / 480 1320 / 1320
IV fluids (Total) 50 / 50
IV piggybacks 390 / 390
Other:
Number of approximated SMALL 2
amounts of urine
Number of approximated MODERATE 2
amounts of urine
Lab Results
04/27/25 08:15
04/27/25 08:15
Physical Exam
-
General: No Acute Distress
Abdomen: Soft and Tender (minimal, LLQ)
Extremities: No Calf Tenderness
[2025-04-27] MEDS: MIRALAX 17 GRAMS PO (10:21)
--- NOTE | 2025-04-27 11:43 | CM ---
CM following re: discharge planning.
Reviewed pt's chart, met with pt.
Per Colorectal surgery, No plans for surgery at this time, continue supportive care.
Pt lives with 2SH, 3 steps to enter, has 3 supportive children. Pt described herself as independent in all areas [employer], known to [facility]. No DME, no SNF history. Pt expressed her desire to return back home with family support. Pt stated she
does not anticipate needs for VN services at discharge.
D/C plan: home with anticipated no needs. to transport at discharge.
CM will follow with discharge plan updates as hospitalization progresses
[2025-04-27 14:55] VITALS: BP 118/53
--- NOTE | 2025-04-27 15:32 | W.PN.HOSP.TC ---
Today's Communication/Plan
-
see bold
Assessment / Plan
Assessment / Plan
A/P: Patient is an 84y F with PMH significant for valvular heart disease, RA and hypertension who presents to ED for evaluation of diverticulitis / abscess diagnosed on outside CT scan.
Acute Sigmoid Diverticulitis with Abscess
Left Hydronephrosis secondary to the above
- Given anatomy and abscess location, [facility] was not able to perform percutaneous drain
- Appreciate colorectal surgery input, continue IV Zosyn, advance to full liquids
- Appreciate ID input, recommend discharging patient on Bactrim and Augmentin
- Trend fever and white count, continue pain meds
Constipation
- MiraLAX as per colorectal surgery
Rheumatoid Arthritis
Immunosuppressed state on Biologics, hydroxychloroquine, and chronic steroids
- Patient reports recent increase in joint pain symptoms.
- Has mostly been off of Actemra (held for PPM replacement in February - took one dose since and then stopped again due to diverticular issues).
- Continue to hold this.
- Continue other current meds including prednisone, Plaquenil, etc.
Valvular Heart Disease
SSS
- S/p mitral, tricuspid and aortic valve replacements in the past.
- S/p PPM placement and revision. Multiple leads in place.
- Resume Lasix 60 mg daily
DVT Prophylaxis: Start Subcu Lovenox
Code Status: Full
Total time spent to see the patient on the floor, examine the patient, review data and lab results, discuss treatment plan with patient, nursing staff around 45 minutes.
Physical Exam
General: No acute distress
HEENT: Normocephalic, Atraumatic, EOMI, MMM
Respiratory: Left basilar crackles
Cardiac: Normal S1/S2, Regular Rate and Rhythm
GI: Soft, nondistended, tender in the lower quadrants, no masses guarding or rebound
Extremities: No Clubbing, Cyanosis, or Edema
Neuro: Nonfocal/Grossly Intact
Anticipated Discharge: 24 - 48 hours
Subjective/Interval History
-
Date of Service: April 27, 2025
Patient reports improvement in her abdominal pain. It is currently 5 out of 10 in intensity, was 7. She reports constipation. No chest pain, no shortness of breath. No fever, no vomiting.
Objective Data
-
Labs:
Laboratory Results
04/26/25
06:00
WBC Cancelled
Hgb Cancelled
Hct Cancelled
Plt Count Cancelled
Sodium Cancelled
Potassium Cancelled
Chloride Cancelled
Carbon Dioxide Cancelled
BUN Cancelled
Creatinine Cancelled
Glucose Cancelled
Calcium Cancelled
Vital Signs:
Vital Signs
Temp Pulse Resp BP Pulse Ox
98.1 F 78 17 133/76 96
04/26/25 23:00 04/26/25 23:00 04/26/25 23:00 04/26/25 23:00 04/26/25 23:00
I&O
04/26/25 04/27/25 04/28/25
06:59 06:59 06:59
Intake Total 480 / 480 1760 / 1760
Balance 480 / 480 1760 / 1760
[2025-04-27] MEDS: LOVENOX 40 MG SC (17:29)
[2025-04-27 22:50] VITALS: BP 144/61
[2025-04-28] MEDS: ZOSYN 50 IV ×5 (00:12→22:34)
[2025-04-28 05:45] LABS: Hematocrit 38.3 % (37.0-47.0); Hemoglobin 12.8 g/dL (12.0-16.0); Mean Corp Hgb Conc. 33.4 g/dL (33.0-37.0); Mean Corpuscular Volume 96.7 fL (81.0-99.0); Platelet Count 245 10^3/uL (130-400); Red Cell Dist. Width 12.4 % (11.5-14.5)
[2025-04-28 05:51] VITALS: BMI 20.5
[2025-04-28 06:04] LABS: Blood Urea Nitrogen 10 mg/dl (7-17); Calcium 9.6 mg/dl (8.4-10.2); Carbon Dioxide 28 mmol/L (22-30); Chloride 106 mmol/L (98-107); Estimated Creatinine Clearance 53 ml/min; Glucose 83 mg/dl (70-99); Potassium 4.2 mmol/L (3.5-5.1); Sodium 139 mmol/L (135-145); eGFR > 60.00
[2025-04-28 07:10] VITALS: BP 141/64
[2025-04-28] MEDS: FOLVITE 1 MG PO (08:55)
[2025-04-28] MEDS: VITAMIN D3 (cholecalciferol) 25 MCG PO (08:55)
[2025-04-28] MEDS: DELTASONE 7 MG PO (08:55)
[2025-04-28] MEDS: LASIX 60 MG PO (08:55)
[2025-04-28] MEDS: LOW STRENGTH ASPIRIN 81 MG PO (08:55)
[2025-04-28] MEDS: MIRALAX 17 GRAMS PO (08:55)
[2025-04-28] MEDS: CORGARD 20 MG PO (08:55)
--- NOTE | 2025-04-28 09:21 | W.PN.HOSP.TC ---
Today's Communication/Plan
-
see bold
Assessment / Plan
Assessment / Plan
A/P: Patient is an 84y F with PMH significant for valvular heart disease, RA and hypertension who presents to ED for evaluation of diverticulitis / abscess diagnosed on outside CT scan.
Acute Sigmoid Diverticulitis with Abscess
Left Hydronephrosis secondary to the above
- Given anatomy and abscess location, [facility] was not able to perform percutaneous drain
- Appreciate colorectal surgery input, continue IV Zosyn, advanced to LRD
- Appreciate ID input, recommend discharging patient on Bactrim and Augmentin
- Trend fever and white count, continue pain meds
Constipation
- MiraLAX as per colorectal surgery, add senna�S as well
Rheumatoid Arthritis
Immunosuppressed state on Biologics, hydroxychloroquine, and chronic steroids
- Patient reports recent increase in joint pain symptoms.
- Has mostly been off of Actemra (held for PPM replacement in February - took one dose since and then stopped again due to diverticular issues).
- Continue to hold this.
- Continue other current meds including prednisone, Plaquenil, etc.
Valvular Heart Disease
SSS
- S/p mitral, tricuspid and aortic valve replacements in the past.
- S/p PPM placement and revision. Multiple leads in place.
- Resumed Lasix 60 mg daily
DVT Prophylaxis: Start Subcu Lovenox
Code Status: Full
Total time spent to see the patient on the floor, examine the patient, review data and lab results, discuss treatment plan with patient, nursing staff around 40 minutes.
Physical Exam
General: No acute distress
HEENT: Normocephalic, Atraumatic, EOMI, MMM
Respiratory: Left basilar crackles
Cardiac: Normal S1/S2, Regular Rate and Rhythm
GI: Soft, nondistended, tender in the lower quadrants, no masses guarding or rebound
Extremities: No Clubbing, Cyanosis, or Edema
Neuro: Nonfocal/Grossly Intact
Anticipated Discharge: 24 - 48 hours
Subjective/Interval History
-
Date of Service: April 28, 2025
Patient is still constipated. Her abdominal pain continues to improve, is currently 3 out of 10 in intensity. No chest pain, no shortness of breath. No fever, no vomiting.
Objective Data
-
Labs:
Laboratory Results
04/28/25
05:18
WBC 13.7 H
Hgb 12.8
Hct 38.3
Plt Count 245
Sodium 139
Potassium 4.2
Chloride 106
Carbon Dioxide 28
BUN 10
Creatinine 0.7
Glucose 83
Calcium 9.6
Vital Signs:
Vital Signs
Temp Pulse Resp BP Pulse Ox
98.4 F 68 16 141/64 96
04/28/25 07:10 04/28/25 08:55 04/28/25 07:10 04/28/25 08:55 04/28/25 07:10
I&O
04/27/25 04/28/25 04/29/25
06:59 06:59 06:59
Intake Total 1760 / 1760 1420 / 1420
Balance 1760 / 1760 1420 / 1420
[2025-04-28] MEDS: SENOKOT-S 2 TABLET PO ×2 (11:12→20:01)
--- NOTE | 2025-04-28 12:10 | W.PN.GS2 ---
Today's Communication / Plan
-
- LRD
- Abx: per ID, continue Zosyn, no plans for IV on DC
- No plans for surgery at this time. Will re-CT (inpatient vs outpatient based on her clinical course)
Assessment / Plan
-
Patient is a 84 yo F p/w complicated diverticulitis in the setting of on chronic steroids for RA admitted.
CT A/P: Sigmoid diverticulitis and associated abscess not amenable to percutaneous drainage. There appears to be associated left hydronephrosis.
AVSS
Labs notable for persistent leukocytosis, stable Hb, normal electrolytes and renal function
Showing signs of clinical improvement. Continues to have a leukocytosis. Plan for dietary advancement to low residue diet. Continue to trend WBC and fever curve. If persistent leukocytosis would consider CT scan prior to discharge tomorrow to
confirm no abscess formation.
- LRD
- Abx: per ID, continue Zosyn, no plans for IV on DC
- No plans for surgery at this time. Will re-CT (inpatient vs outpatient based on her clinical course)
Subjective Data
-
Date of Service: April 28, 2025
Feels improved. Less pain. No nausea or vomiting. Passing flatus, no BM. Afebrile.
Objective Data
-
Intake and Output
04/27/25 04/28/25 04/29/25
06:59 06:59 06:59
Intake Total 1760 / 1760 1420 / 1420 50 / 50
Balance 1760 / 1760 1420 / 1420 50 / 50
Intake:
Oral fluids 1320 / 1320 1320 / 1320
IV fluids (Total) 50 / 50
IV piggybacks 390 / 390 100 / 100 50 / 50
Other:
Number of approximated SMALL 2
amounts of urine
Number of approximated MODERATE 2 3
amounts of urine
Vital Signs
Temp Pulse Resp BP Pulse Ox
98.4 F 68 16 141/64 98
04/28/25 07:10 04/28/25 08:55 04/28/25 07:10 04/28/25 08:55 04/28/25 12:07
Lab Results
04/28/25 05:18
04/28/25 05:18
Calcium 9.6 mg/dl (8.4-10.2) 04/28/25 05:18
Total Bilirubin 0.7 mg/dl (0.2-1.3) 04/25/25 23:35
AST 36 U/L (14-36) 04/25/25 23:35
ALT 29 U/L (0-35) 04/25/25 23:35
Alkaline Phosphatase 134 U/L (38-126) H 04/25/25 23:35
Total Protein 6.9 g/dl (6.3-8.2) 04/25/25 23:35
Albumin 4.1 g/dl (3.5-5.0) 04/25/25 23:35
Physical Exam
-
Gen: NAD
Abd: soft, NT, ND, non-peritoneal
Patient has a cordova catheter: No
Patient has a central line: No
[2025-04-28 15:50] VITALS: BP 124/72
[2025-04-28] MEDS: LOVENOX 40 MG SC (17:25)
[2025-04-28 22:32] VITALS: BP 148/70
[2025-04-29] MEDS: ZOSYN 50 IV ×2 (04:36→10:22)
[2025-04-29 06:00] VITALS: BMI 20.4
[2025-04-29 06:03] LABS: Hematocrit 33.3 % (37.0-47.0); Hemoglobin 11.1 g/dL (12.0-16.0); Mean Corp Hgb Conc. 33.3 g/dL (33.0-37.0); Mean Corpuscular Volume 97.4 fL (81.0-99.0); Platelet Count 239 10^3/uL (130-400); Red Cell Dist. Width 12.2 % (11.5-14.5)
[2025-04-29 06:16] LABS: Blood Urea Nitrogen 15 mg/dl (7-17); Calcium 8.8 mg/dl (8.4-10.2); Carbon Dioxide 29 mmol/L (22-30); Chloride 105 mmol/L (98-107); Estimated Creatinine Clearance 53 ml/min; Glucose 81 mg/dl (70-99); Magnesium 2.4 mg/dl (1.6-2.3); Potassium 3.8 mmol/L (3.5-5.1); Sodium 139 mmol/L (135-145); eGFR > 60.00
[2025-04-29 07:00] VITALS: BP 147/66
[2025-04-29] MEDS: CORGARD 20 MG PO (09:07)
[2025-04-29] MEDS: MIRALAX 17 GRAMS PO (09:07)
[2025-04-29] MEDS: VITAMIN D3 (cholecalciferol) 25 MCG PO (09:07)
[2025-04-29] MEDS: DELTASONE 7 MG PO (09:08)
[2025-04-29] MEDS: FOLVITE 1 MG PO (09:09)
[2025-04-29] MEDS: LOW STRENGTH ASPIRIN 81 MG PO (09:09)
[2025-04-29] MEDS: SENOKOT-S PO ×2 (09:11→09:55)
--- NOTE | 2025-04-29 10:22 | W.PN.ID1 ---
Date of Service
Date of Service: April 29, 2025
Today's Communication
Continue antibiotics.
Assessment / Plan
#Acute Sigmoid Diverticulitis with Abscess
#Rheumatoid Arthritis: Immunosuppressed; on Biologics, hydroxychloroquine, and chronic steroids; Actemra on hold due to diverticular issues
#Valvular Heart Disease
#CHF
#Leukocytosis
-Follow temperature curve; leukocytosis improving
-Follow-up imaging depending on clinical course
-Given anatomy and abscess location, IRad recommended no safe window for draining
-After discussion with the colorectal surgery patient is hopeful to avoid any surgical procedures and would prefer conservative management.
-Currently on IV Zosyn.
At D/C, switch to bactrim DS 1 PO BID + Augmentin 875 mg PO BID x 3 weeks
if she does not respond to this will need IV abx. Do not recommend fluoroquinolones given her high QTc; will need 3-4 weeks of abx
- will need weekly BMP / CBC
- will hold supplemental k while on bactrim
- Blood culture NGTD and urine culture neg
Chief Complaint
-: Other (Diverticulitis)
Subjective / Review of Systems
Review of Systems: No Fever, No Chills and No Abdominal Pain
Vital Signs / Physical Exam
Vital Signs
Vital Signs
Temp Pulse Resp BP Pulse Ox
98 F 68 16 147/66 97
04/29/25 07:00 04/29/25 07:00 04/29/25 07:00 04/29/25 07:00 04/29/25 07:00
Physical Exam
Constitutional: No Acute Distress, Comfortable and Non-toxic
Eyes: Sclera Anicteric
Pulmonary: Non Labored
Gastrointestinal: Non Distended
Extremities: Negative Edema, Cyanosis or Erythema
Neurological: Awake, Alert and Other
Objective Data
Lab Data
Lab Results
04/29/25 04:24
04/29/25 04:25
ESR 20 mm/hour (0-20) 04/25/25 23:35
Estimated Creat Clear 53 ml/min 04/29/25 04:25
Lactic Acid 0.7 mmol/L (0.7-2.0) 04/25/25 23:35
Total Bilirubin 0.7 mg/dl (0.2-1.3) 04/25/25 23:35
AST 36 U/L (14-36) 04/25/25 23:35
ALT 29 U/L (0-35) 04/25/25 23:35
Alkaline Phosphatase 134 U/L (38-126) H 04/25/25 23:35
C-Reactive Protein 39.40 mg/L (0.0-10.00) H 04/25/25 23:35
Most recent labs reviewed.
Micro Results:
04/25/25 23:35 Blood Culture - Preliminary
Blood/Venous No Growth in 72 hours- Final report to follow
04/25/25 23:35 Blood Culture - Preliminary
Blood/Venous No Growth in 72 hours- Final report to follow
04/26/25 06:09 Urine Culture - Final
Urine NO GROWTH
--- NOTE | 2025-04-29 10:54 | W.PN.GS2 ---
Today's Communication / Plan
-
- LRD
- Abx: per ID, continue Zosyn, no plans for IV on DC
- DC today with outpatient follow-up with CRS
Assessment / Plan
-
Patient is a 84 yo F p/w complicated diverticulitis in the setting of on chronic steroids for RA admitted.
CT A/P: Sigmoid diverticulitis and associated abscess not amenable to percutaneous drainage. There appears to be associated left hydronephrosis.
AVSS
Labs notable for persistent leukocytosis trending down, stable Hb, normal electrolytes and renal function
Showing signs of clinical improvement with less abdominal pain. Leukocytosis trending down. John discussion that she is at high risk given her previous failure of outpatient oral antibiotics and immunosuppression. Discussed and offered a repeat
CT scan today to more definitively determine and document that she is improving and has not developed a abscess. Ms. Romano declines at this time. Discussed that she will likely need repeat outpatient imaging. All questions answered.
- LRD
- Abx: per ID, continue Zosyn, no plans for IV on DC
- DC today with outpatient follow-up with CRS
Subjective Data
-
Date of Service: April 29, 2025
No complaints. Overall feels improved. Denies any abdominal or pelvic pain or discomfort. Tolerating a diet. Reports passing flatus and stools. No fevers.
Objective Data
-
Intake and Output
04/28/25 04/29/25 04/30/25
06:59 06:59 06:59
Intake Total 1420 / 1420 500 / 500
Balance 1420 / 1420 500 / 500
Intake:
Oral fluids 1320 / 1320 240 / 240
IV fluids (Total) 60 / 60
IV piggybacks 100 / 100 200 / 200
Other:
Number of approximated MODERATE 3 1
amounts of urine
Vital Signs
Temp Pulse Resp BP Pulse Ox
98 F 68 16 147/66 96
04/29/25 07:00 04/29/25 07:00 04/29/25 07:00 04/29/25 07:00 04/29/25 10:45
Lab Results
04/29/25 04:24
04/29/25 04:25
Calcium 8.8 mg/dl (8.4-10.2) 04/29/25 04:25
Phosphorus 2.9 mg/dl (2.5-4.5) 04/29/25 04:25
Magnesium 2.4 mg/dl (1.6-2.3) H 04/29/25 04:25
Total Bilirubin 0.7 mg/dl (0.2-1.3) 04/25/25 23:35
AST 36 U/L (14-36) 04/25/25 23:35
ALT 29 U/L (0-35) 04/25/25 23:35
Alkaline Phosphatase 134 U/L (38-126) H 04/25/25 23:35
Total Protein 6.9 g/dl (6.3-8.2) 04/25/25 23:35
Albumin 4.1 g/dl (3.5-5.0) 04/25/25 23:35
Physical Exam
-
Gen: NAD
Abd: soft, NT/ND, non-peritoneal
Patient has a cordova catheter: No
Patient has a central line: No
[2025-04-29] MEDS: LASIX PO (11:49)
--- NOTE | 2025-04-29 12:39 | W.PN.HOSP.TC ---
Today's Communication/Plan
-
Cleared by surgery for discharge today
Assessment / Plan
Assessment / Plan
A/P: Patient is an 84y F with PMH significant for valvular heart disease, RA and hypertension who presents to ED for evaluation of diverticulitis / abscess diagnosed on outside CT scan.
Acute Sigmoid Diverticulitis with Abscess
Left Hydronephrosis secondary to the above
- Failed outpatient Augmentin
- Given anatomy and abscess location, [facility] was not able to perform percutaneous drain
- Appreciate colorectal surgery input, improving on IV Zosyn, tolerating low residue diet
- Appreciate ID input, recommend discharging patient on Bactrim and Augmentin x 3 weeks
- Patient was offered and declined repeat abdominal CT on the day of discharge
- Will discharge on Bactrim and Augmentin for 3 weeks as per ID
- Patient has been instructed to stop her potassium supplements, prescription has been provided for weekly BMP and CBC
- If she fails this course of antibiotics, she will need IV antibiotics
- Follow-up with colorectal surgery and ID in the office, and her PCP as well
Constipation
- Resolved, continue laxatives upon discharge
Rheumatoid Arthritis
Immunosuppressed state on Biologics, hydroxychloroquine, and chronic steroids
- Patient reports recent increase in joint pain symptoms.
- Has mostly been off of Actemra (held for PPM replacement in February - took one dose since and then stopped again due to diverticular issues).
- Continue to hold this upon dc until infection completely resolves
- Continue other current meds including prednisone, Plaquenil, etc.
Valvular Heart Disease
SSS
- S/p mitral, tricuspid and aortic valve replacements in the past.
- S/p PPM placement and revision. Multiple leads in place.
- Resumed Lasix 60 mg daily
DVT Prophylaxis: Start Subcu Lovenox
Code Status: Full
Physical Exam
General: No acute distress
HEENT: Normocephalic, Atraumatic, EOMI, MMM
Respiratory: Left basilar crackles
Cardiac: Normal S1/S2, Regular Rate and Rhythm
GI: Soft, nondistended, nontender, no masses guarding or rebound
Extremities: No Clubbing, Cyanosis
Mild lower extremity edema noted
Neuro: Nonfocal/Grossly Intact
Anticipated Discharge: Today
Subjective/Interval History
-
Date of Service: April 29, 2025
Patient reports her abdominal pain has resolved. No nausea, no vomiting. She had a bowel movement. No fever.
Objective Data
-
Labs:
Laboratory Results
04/29/25 04/29/25
04:24 04:25
WBC 11.2 H
Hgb 11.1 L
Hct 33.3 L
Plt Count 239
Sodium 139
Potassium 3.8
Chloride 105
Carbon Dioxide 29
BUN 15
Creatinine 0.7
Glucose 81
Calcium 8.8
Vital Signs:
Vital Signs
Temp Pulse Resp BP Pulse Ox
98 F 68 16 147/66 96
04/29/25 07:00 04/29/25 07:00 04/29/25 07:00 04/29/25 07:00 04/29/25 10:45
I&O
04/28/25 04/29/25 04/30/25
06:59 06:59 06:59
Intake Total 1420 / 1420 500 / 500
Balance 1420 / 1420 500 / 500
--- NOTE | 2025-04-29 12:39 | W.DCSUMMARY ---
Discharge Summary
Discharge Data
Date of Admission: 04/26/25
Date of Discharge: 04/29/25
-
Pending Results: No
Hospital Course
Discharge diagnosis:
Acute Sigmoid Diverticulitis with Abscess
Left Hydronephrosis
Constipation
Rheumatoid arthritis
Immunosuppressed state on Biologics
Valvular heart disease
Sick sinus syndrome status post permanent pacemaker placement
Consults: Colorectal surgery, ID
Hospital course:
84-year-old female with a past medical history of RA on Biologics, immunosuppression, valvular heart disease, and sick sinus syndrome status post permanent pacemaker who was admitted for acute sigmoid diverticulitis with abscess that failed
outpatient Augmentin. She had an outpatient CT at [facility], which showed persistent acute diverticulitis with abscess. Patient was seen in conjunction with colorectal surgery. Attempts were made by IR to drain the abscess, but
was unsuccessful. She was treated conservatively with IV Zosyn, bowel rest.
After several days, her pain resolved. Patient was started on a diet, and tolerated a low residue diet. Her abdominal pain resolved on the day of discharge. She was offered a repeat CT of the abdomen and pelvis on the day of discharge, but
declined. Patient was seen in conjunction with ID for antibiotic recommendations. She will be discharged on Bactrim and Augmentin for 21 days as per ID. She has been instructed to discontinue her potassium supplements. Prescription was provided
for her to have weekly BMP, and CBC. She needs to follow-up with colorectal surgery in the office, ID, and her PCP.
Disposition: Home self-care
Discharge planning: Required 35 minutes
Discharge Plan
-
Patient Disposition: Home with Home Care
Discharge Diagnosis/Procedures: Acute sigmoid diverticulitis with abscess
Condition: Good
Diet: Low Fiber
Activity: As tolerated
Driving Restrictions: As prior to admission
Blood Work: Weekly CBC, BMP
Activity Restrictions/Additional Instructions:
The infection doctor recommends 3 weeks of antibiotics.
Hold your potassium supplement while taking Bactrim, as this can cause high potassium.
You will need weekly blood work, please follow-up with your PCP in 1 week, ID, and colorectal surgery as directed.
Referrals:
Jr Olivo MD [Active, ColoRectal] - in two to four weeks
Dimitris Betancourt, [Active, Infectious Diseases] - in two to three weeks
UNKNOWN - PT DOES,NOT KNOW [Family Provider]
Prescriptions:
New
sennosides-docusate sodium 8.6-50 mg Tablet
2 tab PO BID Qty: 60 0RF
amoxicillin-pot clavulanate 875-125 mg tablet
1 tab PO BID 21 Days Qty: 42 0RF
sulfamethoxazole-trimethoprim [Bactrim DS] 800-160 mg tablet
1 tab PO BID 21 Days Qty: 42 0RF
Continued
acetaminophen [Tylenol] 325 mg Tablet
650 mg PO Q6H PRN (Reason: mild pain )
sulfasalazine 500 mg Tablet
500 mg PO DAILY
famotidine [Pepcid] 40 mg Tablet
40 mg PO DAILY
tramadol 50 mg Tablet
50 mg PO PRN (Reason: pain )
nadolol 20 mg Tablet
20 mg PO DAILY
folic acid 1 mg Tablet
1 mg PO DAILY
aspirin 81 mg Tablet
81 mg PO DAILY
hydroxychloroquine [Plaquenil] 200 mg Tablet
200 mg PO MOWEFR
rosuvastatin 10 mg Tablet
10 mg PO DAILY
Systane (PF) 0.4-0.3 % Dropperette
1 drp OPHTHALMIC (EYE) BID
cholecalciferol (vitamin D3) 25 mcg (1,000 unit) Tablet
25 mcg PO DAILY
diclofenac sodium 1 % Gel
1 TOPICAL PRN (Reason: pain )
dapagliflozin propanediol [Farxiga] 5 mg Tablet
5 mg PO
Rx Instructions:
5 times a week
Oxymetazoline Cinamide
PreserVision AREDS
3 tab PO DAILY PRN (Reason: eyes)
biotin
5,000 mg PO DAILY
calcium citrate
600 mg PO DAILY
prednisone
7 mg PO DAILY
furosemide [Lasix] 40 mg Tablet
60 mg PO DAILY
Held
Acromasin Exemestane
25 mg PO DAILY
Hold Instructions: Resume on 06/30/25. Resume when cleared by colorectal surgery to do so after your infection has cleared
Actemra Injection
152 mg SC Q2W
Hold Instructions: Resume on 06/30/25. Resume when cleared by colorectal surgery to do so after your infection has cleared
Discontinued
Klorcon Potassium
2 tab PO DAILY
Discharge Orders:
Discharge Patient (As Directed); Ordered 04/29/25
Ordered By: Eduin Churchill
Discharge Date and Time
Discharge Date/Time: 04/29/25 14:19
Print Language: ARMENIAN
--- NOTE | 2025-04-29 12:54 | CM ---
CM met with Jenny who is being discharged to home today. Pt is ambulating independently in her room, already dressed to go home.
Order for visiting nurses acknowledged. Pt states she had a visiting nurse in the past, but does not recall what agency provided the care.
After consideration she is declining VN at this time; she will be coming back for surgery in a few weeks and will likely choose to have VN after the surgery.
Plan: Discharge to home with no identified needs.
IMM reviewed, signed and patient provided with a copy.
[2025-04-29 13:35] VITALS: BP 132/60
== END 2025-04-29 14:19 | disposition home or self-care (01) | DRG 392 ==
LOC: 2 SOUTH 03:12
PROVIDERS: ADMITTING PHYSICIAN Hospitalist; ATTENDING PHYSICIAN Family Medicine; EMERGENCY PHYSICIAN Emergency Medicine; OTHER PHYSICIAN Internal Medicine Infectious Disease; OTHER PHYSICIAN Surgery
DX: K57.20 Diverticulitis of large intestine with perforation and abscess without bleeding (principal); I50.32 Chronic diastolic (congestive) heart failure; N13.30 Unspecified hydronephrosis; D84.9 Immunodeficiency, unspecified; M06.9 Rheumatoid arthritis, unspecified; M35.00 Sjogren syndrome, unspecified; I11.0 Hypertensive heart disease with heart failure; I09.1 Rheumatic diseases of endocardium, valve unspecified; K59.00 Constipation, unspecified; Z87.891 Personal history of nicotine dependence; Z79.899 Other long term (current) drug therapy; Z95.0 Presence of cardiac pacemaker; Z79.52 Long term (current) use of systemic steroids; Z79.811 Long term (current) use of aromatase inhibitors; Z79.82 Long term (current) use of aspirin
CPT/HCPCS: 80048; 80053; 81003; 81015; 83605; 83735; 84100; 85025; 85027; 85652; 86140; 87040; 87086; 93005; 96365; 99285

== ENCOUNTER → 2025-05-21 15:49 | Outpatient (REF) | payer MEDICARE, SELFPAY | LOC: RAD 15:49 | PROVIDERS: ATTENDING PHYSICIAN Surgery; FAMILY PHYSICIAN Internal Medicine Geriatric Medicine | DX: K57.20 Diverticulitis of large intestine with perforation and abscess without bleeding (principal) | CPT/HCPCS: 74177; Q9967 ==